=== PATIENT | male | born 2005 | race Caucasian/White ===

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

== ENCOUNTER 2024-08-07 06:35 | Outpatient (REF) | payer BC, SELFPAY ==
--- NOTE | ~2024-08-07 | US_ITS ---
CLINICAL HISTORY: HTN, R O OFELIA US Renal without and with duplex Doppler US Bladder US Prostate Comparison: None Findings: Right kidney normal size and echotexture, 10.9 cm length. No hydronephrosis. Normal color Doppler. Right renal artery velocities measure 118 cm/sec proximally, 134 within the midportion, and 78 distally. RAR is 1.59. Segmental resistive indices on the right measure 0.69 at the superior pole, 0.62 with the midpole, and 0.58 at the lower pole. The right renal vein is patent. Left kidney normal size and echotexture, 12.8 cm length. No hydronephrosis. Normal color Doppler. Left renal artery velocities measure 103 cm/sec proximally, 149 within the midportion, and 113 distally. RAR is 1.77. Segmental resistive indices on the left measure 0.58 at the superior pole, 0.61 at the midpole, and 0.57 at the lower pole. The left renal vein is patent. Aortic velocity is 83.9 cm/sec. Urinary bladder is unremarkable. Prevoid volume 202 mL. Postvoid volume 142 mL. Bilateral ureteral jets are visualized. The prostate measures 4.0 x 3.2 x 3.5 cm, for a volume of 23 cc, which is within normal limits. IMPRESSION: 1. Normal kidneys. No evidence of renal artery stenosis. 2. Urinary bladder postvoid residual of 142 mL, otherwise unremarkable urinary bladder. 3. No prostatomegaly. This document has been electronically signed by: Oren Becerril DO on 08/07/2024 12:57:22
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
--- OUTSIDE RECORDS SUMMARY | 2024-08-07 06:37 | XMS_ITS | Encounter Summary ---
Author Organization [facility] Address [address] [place] [id number] Care Team Providers Care Records Supervisor Name Role Phone Channing Segovia MD Primary Care Provide r Reason for Visit * Reason Onset Date Comments Medication Refill 10/25/2021 Encounter Details Date Type Department Care Team (Late st Contact Info) Description 10/25/2021 Refill [facility]ry [facility] - [place] [address] [facility], [address] [place] [address] Shabana Ramsey NP [address] [facility] [address] [facility] [place] [address] ADHD (attention deficit hyperactivity disorder), combined type Social History Tobacco Use Types Packs/Day Years Used Date Smoking Tobacco: Never Smokeless Tobacco: Never Alcohol Use Standard Drinks/Week Comments Never 0 (1 standard drink = 0.6 oz pur e alcohol) PHQ-2 Answer Date Recorded PHQ-2 Score 1 07/20/2021 Housing Stability Answer Date Recorded Was there a time when you di d not have a steady place to sleep Unrecognized value 06/01/[address] you a re staying is making you sick Unrecognized value 06/01/2021 Sex and Gender Information Value Date Recorded Sex Assigned at Not on file Legal Sex Male 2:25 PM EST Gender Identity Not on file Sexual Orientation Not on file documented as of this encounter Plan of Treatment Upcoming Encounters Date Type Department Care Team (Late st Contact Info) Description 11/03/2024 3:30 PM EDT Office Visit [facility] [place] [address] [place] [address] Wilfredo Milian MD [facility] [place] [phone] documented as of this encounter Visit Diagnoses Diagnosis ADHD (attention deficit hyperactivity disorder), combined type Attention deficit disorder with hyperactivity documented in this encounter Care Teams Records Supervisor Relationship Specialty Start Date End Date Channing Segovia MD [address] [place] [phone] PCP - General PEDIATRIC, GENERAL PEDIATRICS 10/16/17 documented as of this encounter
== END 2024-08-07 06:36 | disposition home or self-care (01) ==
LOC: HO.UMASIMG 06:35
PROVIDERS: Visit Provider Nurse Practitioner
DX: I10 Essential (primary) hypertension (principal)
CPT/HCPCS: 76770; 93975

== ENCOUNTER → 2024-08-07 09:15 | Outpatient (BNV) | payer BC, SELFPAY | PROVIDERS: Visit Provider Radiology Diagnostic Radiology | DX: I10 Essential (primary) hypertension (principal) | CPT/HCPCS: 93975 ==

== ENCOUNTER 2024-09-16 07:07 | Outpatient (REF) | payer OTHER, SELFPAY ==
--- NOTE | ~2024-09-16 | US_ITS ---
CLINICAL HISTORY: ELEVATED LFTS US abdomen complete Comparison: None Provided Findings: Gallbladder unremarkable, no stone formation or wall thickening. Common duct measures 3.2 mm. No sonographic Marks sign. Fatty infiltration of the liver with focal areas of sparing. No significant focal hepatic abnormality. Main portal vein patent with normal direction of flow. Pancreas is unremarkable. Aorta and IVC patent and normal in caliber. The right kidney is normal, 11.3 cm in length. No focal abnormality or hydronephrosis. The left kidney is normal, 12.0 cm in length. No focal abnormality or hydronephrosis. The spleen is normal, 14.0 cm in length. No focal abnormality. Impression: Fatty infiltration of the liver, otherwise unremarkable This document has been electronically signed by: Jose Swenson MD on 09/16/2024 23:16:39
--- OUTSIDE RECORDS SUMMARY | 2024-09-16 07:09 | XMS_ITS | Data Portability ---
Author Organization [place] [facility] Address [address] [place] [address] Assessment Encounter Date Assessment Date Assessment LastModified by Organization Details LastModified Time 06/06/2023 06/06/2023 Patient presented for medication refill. Patient tolerating medication well at current dose without adverse effects. Refilled as below. Discussed plan with patient, who expressed understanding . Follow up as noted below. Not available 06/06/2023 10:17:18 Plan of Treatment Reminders Order Date Submit Date Provider Last Modified By Organization Details Last Modified Time Details Appointments None recorded. Lab CT + NG RNA, PCR, unspecified specimen 2023 024 [facility], [address] [place], [address], 4 01:36:19 drug screen, urine 2023 024 [employer]IL[employer] to Photos [facility], [address] [place], [address], 4 01:36:19 urinalysis, dipstick 2023 024 [facility], [address] [place], [address], 4 10:54:39 urinalysis, dipstick 2022 023 [facility], [address] [place], [address], 3 08:04:32 hemoglobin (Hb), fingerstick , blood 2022 023 [email or web address] [facility], [address] [place] [address], [address], 3 15:02:52 glucose, fingerstick , blood 2022 023 [facility], [facility] [place], [address], 3 15:49:29 Referral behavioral health referral 2023 024 [email or web address] [facility], [address] [place] [address], [address], 4 11:27:02 Procedures None recorded. Surgeries None recorded. Imaging None recorded. Medication Orders Vyvanse 20 mg capsule 2023 024 [facility], [address] [place], [address], 4 10:26:51 Vyvanse 30 mg capsule 2022 024 [facility], [address] [place], [address], 4 10:26:23 Patient TargetsNo targets recorded. Patient Instructions Encounter Date Encounter Id Patient Instructions Last Modified By Organization Details Last Modified Time 12/28/2022 [id number] Vision Screen: Roberson [place]* [email or web address] Not available 12/28/2022 15:03:34 Patient is advis ed that if any concern/ any worse/ any new symptoms. to call back here or go to the nearest emergency Discussed medication : risk and benefit/ side effects/ extermination supervisor use SE/ need to follow up with lab and visit. all discussed with patient Instructed on medication indications, side effects and voiced understanding Instructed to call 911 or go to the nearest ER if symptoms worsen and voiced understanding. Not available 12/29/2022 12:20:00 Lifestyle modifications: Diet (DASH), reduced sodium intake, limiting alcohol consumption, exercise, weight loss, Eat diet low in fats, decrease fatty food intake Decrease simple sugars, carbohydrates Drink plenty of water Exercise as tolerated 3-4 times a week Not available 12/29/2022 12:19:54 06/06/2023 [id number] Patient is advis ed that if any concern/ any worse/ any new symptoms. to call back here or go to the nearest emergency Discussed medication : risk and benefit/ side effects/ retirement use SE/ need to follow up with lab and visit. all discussed with patient Instructed on medication indications, side effects and voiced understanding Instructed to call 911 or go to the nearest ER if symptoms worsen and voiced understanding. Not available 06/06/2023 12:37:49 Lifestyle modifications: Diet (DASH), reduced sodium intake, limiting alcohol consumption, exercise, weight loss, Eat diet low in fats, decrease fatty food intake Decrease simple sugars, carbohydrates Drink plenty of water Exercise as tolerated 3-4 times a week Not available 06/06/2023 12:37:44 Reason for Referral Behavioral Health Referral f or Attention deficit hyperactivity disorder Referring Physician: Akila Richardson, Family Medicine, Encounter Date: 06/06/2023 Results Created Date Observation Date Name Description Value Unit Range Abnormal Flag Note LastModifiedBy Organization Detail LastModifiedTime 12/29/1912/28/2022 Visio n Scree n: Roberson Ila * Result Normal OD/OS Not Available Malena Mejia [facility] [address] [place], [address], 12/28/2022 14:26:34 12/29/1912/28/2022 gluco se, finge rstic k, blood Blood Glucose: mg/dl 109 Not Available [facility] [address] [place], [address], 12/28/2022 15:02:59 10/05/20 23 12/28/2022 hemog lobin (Hb), finge rstic k, blood HGB 14.7 Not Available [facility] [address], [place], [address], 12/28/2022 14:26:32 01/12/20 23 01/11/2023 urina lysis , dipst ick bilirubin Not Available [facility] [address], [place], [address], 12/28/2022 14:26:30 01/12/2001/11/2023 urina lysis , dipst ick blood Not Available [facility] [address], [place], [address], 12/28/2022 14:26:30 01/12/2001/11/2023 urina lysis , dipst ick clarity Not Available [facility] [address], [place], [address], 12/28/2022 14:26:30 01/12/20 23 01/11/2023 urina lysis , dipst ick color Not Available [facility] [address], [place], [address], 12/28/2022 14:26:30 01/12/2001/11/2023 urina lysis , dipst ick glucose Not Available [facility] [address], [place], [address], 12/28/2022 14:26:30 01/12/2001/11/2023 urina lysis , dipst ick ketone Not Available [facility] [address], [place], [address], 12/28/2022 14:26:30 01/12/20 23 01/11/2023 urina lysis , dipst ick leukocytes Not Available [facility] [address], [place], [address], 12/28/2022 14:26:30 01/12/20 23 01/11/2023 urina lysis , dipst ick nitrite Not Available [facility] [address], [place], [address], 12/28/2022 14:26:30 01/12/20 23 01/11/2023 urina lysis , dipst ick pH Not Available [facility] [address] [facility], [place], [address], 12/28/2022 14:26:30 01/12/20 23 01/11/2023 urina lysis , dipst ick protein Not Available [facility] [address] [facility] [place], [address], 12/28/2022 14:26:30 01/12/20 23 01/11/2023 urina lysis , dipst ick specific gravity Not Available [facility] [address] [facility] [place], [address], 12/28/2022 14:26:30 01/12/20 23 01/11/2023 urina lysis , dipst ick urobilinogen Not Available [facility] [address] [facility] [place], [address], 12/28/2022 14:26:30 06/06/19 24 06/09/2023 CHLAM YDIA/ N. GONOR RHOEA E RNA, TMA, UROGE NITAL chlamydia trachomatis RNA, tma, urogenital NOT DETECT ED not detect ed normal Not Available [facility] [place] [facility] [address], [place], [address], 06/09/2023 01:36:19 06/06/19 24 06/09/2023 CHLAM YDIA/ N. GONOR RHOEA E RNA, TMA, UROGE NITAL neisseria gonorrhoeae RNA, tma, urogenital NOT DETECT ED not detect ed normal Not Available [facility] [place] [facility] [address], [place], [address], 06/09/2023 01:36:19 06/06/19 24 06/09/2023 CHLAM YDIA/ N. GONOR RHOEA E RNA, TMA, UROGE NITAL comment The lupillo tical perfo rmanc e chapo cteri stics of this assay , when used to test SureP ath(T M) speci mens have been deter mined by [facility]. The modif icati ons have not been clear ed or appro phillip by the FDA. This assay has been valid ated pursu ant to the CLIA regul ation s and is used for clini arjun purpo ses. For addit ional infor obinna cuevas e refer to https ://ed ucati on.qu estdi DraftDays. com/f aq/FA Q154 (This link is being provi ded for infor chalo ponce/ educa eugenio l purpo ses only. ) Not Available [facility] [place] [facility] [address], [place], [address], 06/09/2023 01:36:19 06/06/19 24 06/09/2023 DRUG MONIT ORING , PANEL 8 WITH CONFI RMATI ON, URINE alcohol metabolites NEGATI VE NG/mL <500 Not Available [facility] [place] [facility] [address], [place], [address], 06/09/2023 01:36:19 06/06/19 24 06/09/2023 DRUG MONIT ORING , PANEL 8 WITH CONFI RMATI ON, URINE amphetamines NEGATI VE NG/mL <500 Not Available [facility] [place] [facility] [address], [place], [address], 06/09/2023 01:36:19 06/06/19 24 06/09/2023 DRUG MONIT ORING , PANEL 8 WITH CONFI RMATI ON, URINE benzodiazepi miko NEGATI VE NG/mL <100 Not Available [facility] [place] [facility] [address], [place], [address], 06/09/2023 01:36:19 06/06/19 24 06/09/2023 DRUG MONIT ORING , PANEL 8 WITH CONFI RMATI ON, URINE buprenorphin e NEGATI VE NG/mL <5 Not Available [facility] [place] [facility] [address], [place], [address], 06/09/2023 01:36:19 06/06/19 24 06/09/2023 DRUG MONIT ORING , PANEL 8 WITH CONFI RMATI ON, URINE cocaine metabolite NEGATI VE NG/mL <150 Not Available [facility] [place] [facility] [address], [place], [address], 06/09/2023 01:36:19 06/06/19 24 06/09/2023 DRUG MONIT ORI , PANEL 8 WITH CONFI RMATI ON, URINE 6 acetylmorphi ne NEGATI VE NG/mL <10 Not Available [facility] [place] [facility] [address], [place], [address], 06/09/2023 01:36:19 06/06/19 24 06/09/2023 DRUG MONIT ORI , PANEL 8 WITH CONFI RMATI ON, URINE marijuana metabolite NEGATI VE NG/mL <20 Not Available [facility] [place] [facility] [address], [place], [address], 06/09/2023 01:36:19 06/06/19 24 06/09/2023 DRUG MONIT ORING , PANEL 8 WITH CONFI RMATI ON, URINE MDMA NEGATI VE NG/mL <500 Not Available [facility] [place] [facility] [address], [place], [address], 06/09/2023 01:36:19 06/06/19 24 06/09/2023 DRUG MONIT ORING , PANEL 8 WITH CONFI RMATI ON, URINE opiates NEGATI VE NG/mL <100 Not Available [facility] [place] [facility] [address], [place], [address], 06/09/2023 01:36:19 06/06/19 24 06/09/2023 DRUG MONIT ORING , PANEL 8 WITH CONFI RMATI ON, URINE oxycodone NEGATI VE NG/mL <100 Not Available [facility] [place] [facility] [address], [place], [address], 06/09/2023 01:36:19 06/06/1906/09/2023 DRUG MONIT ORING , PANEL 8 WITH CONFI RMATI ON, URINE creatinine 216.0 mg/dL > or = 20.0 Not Available [facility] [place] [facility] [address], [place], [address], 06/09/2023 01:36:19 06/06/19 24 06/09/2023 DRUG MONIT ORING , PANEL 8 WITH CONFI RMATI ON, URINE pH 7.9 4.5-9. 0 Not Available [facility] [place] [facility] [address], [place], [address], 06/09/2023 01:36:19 06/06/19 24 06/09/2023 DRUG MONIT ORING , PANEL 8 WITH CONFI RMATI ON, URINE oxidant NEGATI VE mcg/m L <200 Not Available [facility] [place] [facility] [address], [place], [address], 06/09/2023 01:36:19 06/06/19 24 06/09/2023 DRUG MONIT ORING TEMPL ATE notes and comments This drug testi ng is for medic al treat ment only. Lupillo sis was perfo rmed as non-f orens ic testi ng and these resul ts shoul d be used only by healt hcare provi ders to rende r diagn osis or treat ment, or to monit or progr ess of medic al condi tions . LDT Notes : Confi rmati on tests were devel oped and their lupillo tical perfo rmanc e chapo cteri stics have been deter mined by [facility]. It has not been clear ed or appro phillip by the FDA. This assay has been valid ated pursu ant to the CLIA regul ation s and is used for clini arjun purpo ses. Healt hcare Provi ders needi ng Inter preta tion aurelio tance , pleas e conta ct us at 1.877 .40.R XTOX (1.87 7.407 .9869 ) M-F, 8am to 10pm EST Not Available [facility] [place] [facility] [address], [place], [address], 06/09/2023 01:36:20 06/07/19 24 06/07/2023 urina lysis , dipst ick bilirubin negati ve Not Available [facility] [address], [address], 06/06/2023 10:24:59 06/07/19 24 06/07/2023 urina lysis , dipst ick blood negati ve Not Available [facility] [address], [address], 06/06/2023 10:24:59 06/07/19 24 06/07/2023 urina lysis , dipst ick clarity clear Not Available [facility] [address], [address], 06/06/2023 10:24:59 06/07/19 24 06/07/2023 urina lysis , dipst ick color yellow Not Available [facility] [address], [address], 06/06/2023 10:24:59 06/07/19 24 06/07/2023 urina lysis , dipst ick glucose negati ve Not Available [facility] [address], [place], [address], 06/06/2023 10:24:59 06/07/19 24 06/07/2023 urina lysis , dipst ick ketone negati ve Not Available [facility] [place] [address] [facility] [place], [address], 06/06/2023 10:24:59 06/07/19 24 06/07/2023 urina lysis , dipst ick leukocytes negati ve Not Available [facility] [place] [address] [facility] [place], [address], 06/06/2023 10:24:59 06/07/19 24 06/07/2023 urina lysis , dipst ick nitrite negati ve Not Available [facility] [address], [place], [address], 06/06/2023 10:24:59 06/07/19 24 06/07/2023 urina lysis , dipst ick pH 8.5 Not Available [address], [place], [address], 06/06/2023 10:24:59 06/07/19 24 06/07/2023 urina lysis , dipst ick protein trace Not Available [address], [address], 06/06/2023 10:24:59 06/07/19 24 06/07/2023 urina lysis , dipst ick specific gravity 1.015 Not Available [place] [address] [facility] [place], [address], 06/06/2023 10:24:59 06/07/19 24 06/07/2023 urina lysis , dipst ick urobilinogen 1.0 Not Available [place] [address] [place], [address], 06/06/2023 10:24:59 Result Notes None recorded. Problems Name Problem SNOMED Code Status Onset Date Resolution Date Notes Provider Name and Address Organization Details Recorded Time Body mass index 25-29 - overweight 446434555 Active 2022 AKILA RICHARDSON [employer] [address] [place] [address],[place], [address], [facility] 3 12:19:29 Attention deficit hyperactivity disorder 156799028 Active 2022 AKILA RICHARDSON [employer] [address] [place] [address],[place], [address], [facility] 3 12:19:31 Problem Notes None recorded. Procedures Surgical History Date Name Laterality Status Provider Name and Address Organization Details Recorded Time 4 HEDIS Medication list reviewed completed AKILA RICHARDSON [employer]PER[employer] [address] [place] [address],[place], [address], [facility] 06/06/2023 12:37:33 3 HEDIS Medication list reviewed completed AKILA RICHARDSON [employer] SUPER[employer] [address] [place] [address],[place], [address], [facility] 12/29/2022 12:19:12 extraction of wisdom tooth completed Danielle George [facility] 12/28/2022 13:49:05 Imaging Results None recorded. Procedure Notes None recorded. Medical Equipment None Reported. Allergies No known drug allergies Medications Name Sig Start Date Stop Date Status Note LastModified by Organization Details LastModified Time Vyvanse 30 mg capsule Take 1 capsule every day by oral route for 30 days. 023 2023 completed Not Available Not Available Not Available Vyvanse 20 mg capsule Take 1 capsule every day by oral route for 7 days. 024 active Not Available Not Available Not Avai lable Vitals Date Recorded Body height Body mass index (BMI) Body mass index (BMI) [Percentile] Per age and sex Body weight Body temperature Respiratory rate Heart rate Systolic blood pressure Diastolic blood pressure Provider Name and Address Organization Details Last Updated DateTime 4 188 cm 27.4 kg/m2 91 % 95518.2 7 g 97.3 [degF] 18 /min 91 /min 139 mm[Hg] 90 mm[Hg] Danielle George [facility] 4 10:14:54 Date Recorded Body weight Heart rate Oxygen saturation Oxygen saturation in Arterial blood by Pulse oximetry Respiratory rate Body temperature Body mass index (BMI) Body mass index (BMI) [Percentile] Per age and sex Body height Systolic blood pressure Diastolic blood pressure Provider Name and Address Organization Details Last Updated DateTime 3 29397.0 5 g 87 /min 97 % 97 % 17 /min 97.8 [degF] 27.8 kg/m2 93 % 188 cm 153 mm[Hg] 87 mm[Hg] Danielle George [facility] 3 13:52:02 Social History Question Answer Notes LastModified by [employer] ion Details LastModified Time Tobacco Smoking Status [facility] 12/28/2022 13:47:59 Do You Wear A Helmet When Biking? Yes [email or web address] Information not available 12/28/2022 Are You Blind Or Do You Have Difficulty Seeing? No Information n ot available 12/28/2022 What Is Your Level Of Caffeine Consumption? None [email or web address] Information not available 12/28/2022 What Type Of Retail Selling Floor Leader Do You Use? None [email or web address] Information not available 12/28/2022 In The 14 Days Before Symptom Onset, Have You Had Close Contact With A Laboratory-confirm ed COVID-19 While That Case Was Ill? No [email or web address] Information n ot available 12/28/2022 In The 14 Days Before Symptom Onset, Have You Had Close Contact With A Person Who Is Under Investigation For COVID-19 While That Person Was Ill? No [email or web address] Information not available 12/28/2022 Have You Been To An Area Known To Be High Risk For COVID-19? No [email or web address] Information not available 12/28/2022 Are You Deaf Or Do You Have Serious Difficulty Hearing? No [email or web address] Information not available 12/28/2022 What Type Of Diet Are You Following? REGULAR [email or web address] Information n ot available 06/06/2023 Have You Processed Blood Or Body Fluids From An Ebola Virus Disease Patient Without Appropriate PPE? No [email or web address] Information not available 12/28/2022 Do You Reside In Or Have You Traveled To An Area Where Ebola Virus Transmission Is Active? No [email or web address] Information not available 12/28/2022 Have There Been Any Changes To Your Family Or Social Situation? No [email or web address] Information no t available 12/28/2022 Are There Any Guns Present In Your Home? No [email or web address] Information not available 12/28/2022 Have You Recently Or Are You Planning To Travel To An Area With Zika Virus? No [email or web address] Information not available 12/28/2022 What Is Your Home Situation? Other [email or web address] Information not available 12/28/2022 What Was The Date Of Your Most Recent Tobacco Screening? 12/28/2022 [email or web address] Information not available 12/28/2022 What Is Your Parents' Marital Status? Unmarried [email or web address] Information not available 06/06/2023 Do You Have Any Pets? No [email or web address] Information not available 12/28/2022 What Is Your Relationship Status? Single [email or web address] Information not available 12/28/2022 Do You Use Your Seat Belt Or Car Seat Routinely? Yes [email or web address] Information not available 12/28/2022 Do You Have Smoke And Carbon Monoxide Detectors In Your Home? Yes [email or web address] Information not available 12/28/2022 Are You Passively Exposed To Smoke? No [email or web address] Information no t available 12/28/2022 What Types Of Sporting Activities Do You Participate In? I Do Not Have A Child [email or web address] Information not available 06/06/2023 Do You Use Sunscreen Routinely? Yes [email or web address] Information not available 06/06/2023 Has Tobacco Cessation Counseling Been Provided? No [email or web address] Information not available 12/28/2022 Do You Have Difficulty Walking Or Climbing Stairs? No [email or web address] Information not available 12/28/2022 Sex: Male Functional Status Question Answer Note LastModified by Organizat ion Details LastModified Time Do you use any illicit or recreational drugs? No [email or web address] Information not available 12/28/2022 Do you or have you ever used any other forms of tobacco or nicotine? No [email or web address] Information not available 12/28/2022 What is your level of alcohol consumption? None [email or web address] Information not available 12/28/2022 Do you or have you ever used smokeless tobacco? [id number] [email or web address] Information n ot available 06/06/2023 Do you have transportation difficulties? No Information not available 12/28/2022 Are you able to walk? YESWOREST [email or web address] Information not available 12/28/2022 Do you have difficulty doing errands alone? No sucxqcnfia99 Information not available 12/28/2022 Are you able to care for yourself? Yes [email or web address] Information n ot available 12/28/2022 Do you have difficulty dressing or bathing? No clsiwttvqb95 Information not available 12/28/2022 Do you or have you ever used e-cigarettes or vape? Never used electronic cigarettes kkquvrfzhd08 Information not available 06/06/2023 What is your exercise level? Moderate [email or web address] Information not available 06/06/2023 Mental Status Question Answer Note LastModified by Organizat ion Details LastModified Time Do you feel stressed (tense, restless, nervous, or anxious, or unable to sleep at night)? [id number] Information not available 12/28/2022 Do you have difficulty concentrating, remembering or making decisions? No [email or web address] Information no t available 12/28/2022 Are you or have you been involved with bullying? No [email or web address] Information not available 12/28/2022 Family History Relationship Description Onset Age of this Age Resolved Age Notes LastModified by Organization Details LastModified Time Father Hypertensive disorder [email or web address] Not available 07/2022 13:47:42 Mother Mental disorder [email or web address] Not available 10:13:27 Medical History Condition Response ADD/ADHD Y Anxiety Disorder Y Past Encounters Encounter ID Performer Location Encounter Start Date Encounter Closed Date Diagnosis/Indication Diagnosis SNOMED-CT Code Diagnosis ICD10 Code Diagnosis Note [id number] AKILA RICHARDSON APRN [facility] [address] [place] [address] 12/28/2022 13:22:30 12/28/2022 15:01:52 Adult health examination 889215017 Z00.00 Attention deficit hyperactivity disorder 250390985 F90.9 Body mass index 25-29 - overweight 968237728 Z68.27 Venereal d isease screening 675800786 Z11.3 [id number] AKILA RICHARDSON APRN [facility] [address] [place] [address] 06/06/2023 09:55:50 06/06/2023 10:31:04 Attention deficit hyperactivity disorder 201631732 F90.9 Venereal d isease screening 408646645 Z11.3 Health Concerns Section Related Observation LastModified by Organization Detai ls LastModified Time None Recorded Concern Status LastModified by Organization Details LastModified Time None Recorded Advance Directives Directive None Recorded Payers Insurance Date Sequence Insurance Name Policy Number Policy Mohr Covered Member ID Mohr Member ID Guarantor Name 12/28/2022 1 [place] [id number] Han Beckfordury [id number] Tltj Beck[place]ury 06/13/2023 1 [place] [id number] Han You [id number] Tl You 12/27/2022 2 [place] [id number] [facility] [id number] [facility] Notes Date Note Type Note Provider Name and Address Organization Details Recorded Time 12/28/2022 text/html Here for ADHD medication refills. States he was diagnosed 5 years ago [place] and moved to [place] for college two months ago. Needing refills for college classes. States he can obtain the old records. AKILA RICHARDSON APRN [address] [place] [address], [phone], [facility] 12/29/2022 12:21:17 06/06/2023 text/html here for refill. Reports he is wanting to decrease the dosing. AKILA RICHARDSON APRN [address] [facility] [place], [address], [facility] 06/06/2023 12:38:09
== END 2024-09-16 07:08 | disposition home or self-care (01) ==
LOC: HO.UMASIMG 07:07
PROVIDERS: Visit Provider Nurse Practitioner
DX: R79.89 Other specified abnormal findings of blood chemistry (principal)
CPT/HCPCS: 76700

== ENCOUNTER → 2024-09-16 09:00 | Outpatient (BNV) | payer OTHER, SELFPAY | PROVIDERS: Visit Provider Radiology Diagnostic Radiology | DX: K76.0 Fatty (change of) liver, not elsewhere classified (principal) | CPT/HCPCS: 76700 ==